=== PATIENT | female | born 1950 | race Caucasian/White ===

== ENCOUNTER 2017-05-19 19:37 | Emergency (ER) | payer BC ==
[~2017-05-19] VITALS: Ht 175.3 cm; Wt 61.2 kg
[2017-05-19 20:00] VITALS: BP 116/73
[2017-05-19] MEDS ORDERED: TYLENOL EXTRA500 MG ORAL (21:25)
[2017-05-19] MEDS ORDERED: ZOFRAN4 M3 ORAL (21:25)
[2017-05-19 21:30] VITALS: BP 116/73
--- NOTE | 2017-05-19 22:10 | Emergency Room Report ---
History of Present Illness General Chief Complaint: Multiple Trauma/Fall Source: Patient Present Illness HPI The patient is a 66-year-old female with a stated history of hypothyroidism only presenting for head and neck pain after hitting her head today. The patient states that she was walking her dog and hit a large tree branch with the front of her head and then she fell backwards and hit the back of her head on cement. He denies loss of consciousness. She does admit to feeling dizzy and a mild headache described as a 2/10 dull ache to the back of the head. Pain radiates to the mid posterior neck. She denies a feeling of nausea and denies vomiting. She denies blurred vision. She does admit to feeling of fogginess. She denies any other symptoms including fever, chills, chest pain, shortness of breath Allergies: Coded Allergies: No Known Allergies (Unverified , 05/19/17) Patient History Past Medical History: see triage record Pertinent Family History: none Reviewed Nursing Documentation: PMH: Agreed, PSxH: Agreed Nursing Documentation-PMH Past Medical History: No History, Except For Review of Systems All Other Systems: negative except mentioned in HPI Physical Exam Vital Signs Date Time Temp Pulse Resp B/P Pulse Ox O2 Delivery O2 Flow Rate FiO2 05/19/17 19:49 97.9 78 16 116/73 100 Room Air Sp02 EP Interpretation: reviewed, normal General Appearance: no apparent distress, alert, GCS 15, non-toxic Head: normocephalic, atraumatic, other - Small depresion of the L frontal scalp ENT: hearing grossly normal, normal pharynx, no angioedema, normal voice Neck: full range of motion, supple/symm/no masses, tender midline Respiratory: chest non-tender, lungs clear, normal breath sounds, no wheezing, speaking full sentences Cardiovascular #1: regular rate, rhythm, no edema Musculoskeletal: back normal, gait/station normal, normal range of motion, non- tender Neurologic: alert, oriented x3, responsive, motor strength/tone normal, sensory intact, speech normal Psychiatric: judgement/insight normal, memory normal, mood/affect normal, no suicidal/homicidal ideation Skin: normal color, no rash, warm/dry, well hydrated Lymphatic: no adenopathy Medical Decision Making PA Attestation Dr. Gamboa is my supervising physician. Patient management was discussed with my supervising physician Diagnostic Impression: Primary Impression: Concussion Qualified Codes: S06.0X0A - Concussion without loss of consciousness, initial encounter Additional Impression: Scalp contusion ER Course The patient is a 66-year-old female presenting with head injury after falling Differential diagnoses include but not limited to Concussion, contusion, fracture, intracranial hemorrhage, disc herniation, among others Physical exam: Vitals within normal limits per no apparent distress PERRL. A&Ox4 Head is normocephalic. There is a depression of the right forehead. Tender to palpation. Also tenderness to palpation over the occipital region. No ecchymosis is seen. No raccoon eyes or Millan sign. No fluids from the nose. There is tense to palpation over the mid cervical spine. Full active range of motion. No step-offs. Otherwise exam is unremarkable CT scan of the head and C-spine are both unremarkable for acute findings The patient is given pain medication and will be discharged home. ER precautions given CT/MRI/US Diagnostic Results CT/MRI/US Diagnostic Results #1: Imaging Test Ordered: CT head Impression No acute findings CT/MRI/US Diagnostic Results #2: Imaging Test Ordered: CT C spine Impression No acute findings Last Vital Signs Date Time Temp Pulse Resp B/P Pulse Ox O2 Delivery O2 Flow Rate FiO2 05/19/17 19:49 97.9 78 16 116/73 100 Room Air Status: improved Disposition: HOME, SELF-CARE Condition: Improved Scripts Acetaminophen* (TYLENOL EXTRA STRENGTH*) 500 Mg Tablet 500 MG ORAL Q8H Y for Prn Headache/Temp > 101, #30 TAB 0 Refills Prov: TERZIAN,NICOLE P.A. 05/19/17 Ondansetron* (ZOFRAN*) 4 Mg Tablet 4 MG ORAL Q6H Y for Nausea & Vomiting, #15 TAB Prov: TERZIAN,NICOLE P.A. 05/19/17 Patient Instructions: Facial or Scalp Contusion, Concussion, Adult Additional Instructions: I discussed my findings with the patient. All questions and concerns have been answered. Treatment and medication compliance have been addressed. I advised the patient that they need to follow up with PMD in 3-5 days. Return to ED if symptoms worsen, new symptoms arise such as vomiting, loss of consciousness, continued/worsening dizziness, or if needed for any reason. Patient verbalized understanding of discharge instructions. NICOLE BRONSON May 19, 2017 22:10
--- NOTE | 2017-05-20 08:41 | Diagnostic Imaging Report ---
Indications: Neck pain Technique: Continuous helical CT imaging of the cervical spine performed with automatic exposure was on a Siemens sensation [address] scanner. Axial, coronal and sagittal images reconstructed at 3 mm slice thicknesses. CTDI volume(s): 12 mGy Total DLP: 296 mGy-cm Findings: Comparison: None. Lordotic curvature is preserved.Vertebral alignment is intact. No fracture, facet subluxation or dislocation, prevertebral soft tissue swelling, or other acute changes are demonstrated. Multilevel disc space narrowing with marginal osteophyte formation, facet hypertrophy. No obvious significant spinal stenosis results. Multilevel mild neural foraminal narrowing. Irregular pleural-based linear densities in both lung apices.. IMPRESSION: No evidence of acute cervical abnormality. Degenerative spondylosis Pulmonary biapical linear densities likely chronic inflammatory/postinflammatory This correlates with Dr. Jameson's preliminary report. The CT scanner at [facility] is accredited by the [employer] and the scans are performed using protocols designed to limit radiation exposure to as low as reasonably achievable to attain images of sufficient resolution adequate for diagnostic evaluation.
--- NOTE | 2017-05-20 08:46 | Diagnostic Imaging Report ---
Indications: Cephalgia Technique: Continuous helical CT imaging of the brain was performed with automatic exposure control on a Siemens sensation [address] scanner. Axial and coronal images were reconstructed at 5 mm slice thickness and interval. CTDI volume(s): 70 mGy Total DLP: 1404 mGy-cm Findings: Comparison: None Patchy and confluent low attenuation is present in the bilateral periventricular and deep cerebral white matter. Ventricles, cisterns, and sulci are diffusely prominent. No evidence of mass or hemorrhage, mass effect, midline shift, hydrocephalus, or increased intracranial pressure. Bone window images are unremarkable. Left sphenoid sinus opacified. Remainder visualized paranasal sinuses and mastoid air cells are clear. IMPRESSION: No evidence of acute tear or other acute intracranial pathology Bilateral cerebral periventricular and deepwhite matter low attenuation, nonspecific, likely chronic microvascular ischemic in nature. Atrophy Left sphenoid sinusitis. This correlates with preliminary report generated overnight by Dr. Jameson. The CT scanner at [facility] is accredited by the [employer] and the scans are performed using protocols designed to limit radiation exposure to as low as reasonably achievable to attain images of sufficient resolution adequate for diagnostic evaluation.
== END 2017-05-19 21:30 | disposition home or self-care (01) ==
LOC: EMR 20:05
DX: S06.0X0A Concussion without loss of consciousness, initial encounter (principal); S00.03XA Contusion of scalp, initial encounter; W22.09XA Striking against other stationary object, initial encounter; Y93.K1 Activity, walking an animal; Y92.9 Unspecified place or not applicable
CPT/HCPCS: 70450; 72125; 99284